=== PATIENT | male | born 1940 | race Caucasian/White ===

== ENCOUNTER 2017-08-19 04:51 | Emergency (ER) | payer MEDICARE ==
[2017-08-19 06:05] LABS: Anion Gap 19 mmol/L (10-20); BUN (Urea Nitrogen) 33 mg/dL (8.4-25.7); Calc. Creatinine Clearance 0 mL/min (70-130); Calcium 9.2 mg/dL (7.8-10.44); Carbon Dioxide 24 mmol/L (23-31); Chloride 102 mmol/L (98-107); Estimated GFR-MDRD 45; Glucose 147 mg/dL (83-110); Sodium 141 mmol/L (136-145)
[2017-08-19 06:14] LABS: Troponin I 0.103 ng/mL (< 0.028)
[2017-08-19 06:19] LABS: Bilirubin Negative (Negative); Blood, Urine Trace (Negative); Clarity Clear (Clear); Glucose, Urine (Dipstick) Negative (Negative); Leukocyte Negative (Negative); Nitrite Negative (Negative); Protein, Urine (Dipstick) Negative (Neg-Trace); Specific Gravity, Urine 1.015 (1.005-1.030); Urobilinogen 0.2 mg/dL (0.2-1.0); pH, Urine 5.5 (5.0-9.0)
[2017-08-19 06:20] LABS: #Basophils 0.1 thou/uL (0.0-0.2); #Monocytes 0.7 thou/uL (0.11-0.59); #Neutrophils 5.6 thou/uL (1.40-6.50); %Eosinophils 0.6 % (0.0-10.0); %Lymphocytes 13.3 % (21.0-51.0); %Neutrophils 75.1 % (42.0-75.0); Hemoglobin 13.3 g/dL (14.0-18.0); Mean Corpuscular HGB CONC 33.5 g/dL (32.0-36.0); Mean Corpuscular Hemoglobin 31.3 pg (27.0-31.0); Mean Corpuscular Volume 93.5 fl (80.0-94.0); Mean Platelet Volume 6.2 fL (7.4-10.4); Platelet Count 273 thou/uL (130-400); RBC Distribution Width 12.1 % (11.5-14.5); Red Blood Cell (RBC) Count 4.25 mill/uL (4.70-6.10); White Blood Cell (WBC) Count 7.4 thou/uL (4.8-10.8)
[2017-08-19 06:21] LABS: WBC/HPF 0-3 HPF (0-3)
[2017-08-19 06:22] LABS: Bacteria/HPF None Seen HPF (None Seen); Squamous Epithelial 0-3 HPF (0-3)
[2017-08-19] MEDS ORDERED: Lorazepam 2 MG/ML VIAL ONE (06:36)
[2017-08-19] MEDS ORDERED: Ondansetron HCl/PF 4 MG/2 ML Vial ONE (06:36)
[2017-08-19] MEDS ORDERED: Diazepam 5 MG TAB ONE (07:56)
--- NOTE | 2017-08-19 08:10 | RAD ---
PORTABLE CHEST: Date: 08/19/17 PROVIDED CLINICAL HISTORY: Dyspnea. COMPARISON: 03/24/17. FINDINGS: Cardiac and mediastinal silhouette is unchanged in appearance. No focal consolidation, pleural fluid, or pneumothorax apparent, with limitations in evaluation due to lung hypoinflation. IMPRESSION: As above. POS: [facility]
--- NOTE | 2017-08-19 09:43 | CT ---
PRELIMINARY REPORT/[facility]/EMERGENCY AFTER HOURS PROCEDURE: EXAM: CT Head Without Intravenous Contrast CLINICAL HISTORY: 76 years old, male; Signs and symptoms; Other: General weakness all over TECHNIQUE: Axial computed tomography images of the head/brain without intravenous contrast. COMPARISON: No relevant prior studies available. FINDINGS: Brain: Moderate volume loss No hemorrhage. Mild white matter disease. No edema. Ventricles: Unremarkable. No ventriculomegaly. Bones/joints: Unremarkable. No acute fracture. Soft tissues: Unremarkable. Sinuses: Unremarkable as visualized. No acute sinusitis. Mastoid air cells: Unremarkable as visualized. No mastoid effusion. IMPRESSION: No intracranial hemorrhage.Please see discussion above. Thank you for allowing us to participate in the care of your patient. Dictated and Authenticated by: Fredrick Ruiz MD 08/19/2017 6:19 AM Central Time ([place] & [place]) FINAL REPORT EMERGENCY AFTER HOURS CT BRAIN: Date: 08/19/17 IMPRESSION: I agree with the preliminary interpretation given by Dharmesh. No evidence for intracranial hemorrhage or mass effect. Significant interval change with respect to 03/23/17 is not apparent. POS: [facility]
== END 2017-08-19 08:52 | disposition short-term general hospital (02) ==
LOC: MADERS 04:51
DX: R53.1 Weakness (principal); R79.89 Other specified abnormal findings of blood chemistry; G20 Parkinson's disease; Z79.899 Other long term (current) drug therapy
CPT/HCPCS: 36415; 70450; 71045; 80048; 81003; 81015; 82553; 83880; 84484; 85025; 93005; 96374; 96375; J2060; J2405